=== PATIENT | male | born 1975 | race Caucasian/White ===

== ENCOUNTER 2025-03-03 13:38 | Outpatient (CLI) | payer OTHER, SELFPAY ==
--- OUTSIDE RECORDS SUMMARY | 2025-02-25 12:00 | XMS_ITS | Encounter Summary ---
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 to Physical Therapy for Evaluation & Treatment New Medications Ordered This Visit Medications celecoxib (CeleBREX) 200 MG capsule Sig: Take 1 capsule by mouth 2 (Two) Times a Day As Needed for Mild Pain. Dispense: 60 capsule Refill: 5 TIME SPENT: I spent 50 minutes caring for the patient on this date of service. This time includes time spent by me in the following activities: Preparing for the visit, obtaining records, reviewing/ordering tests and independently reviewing results, performing a medically appropriate history/exam, counseling and educating the patient/family/caregiver, ordering medications, tests, or procedures, and documenting information in the medical record. Follow Up: Return in about 6 months (around 08/26/2025). Patient or patient abrasives sales representative verbalized consent for the use of Ambient Listening during the visit with Carmine Ng MD for chart documentation. 02/25/2025 13:35 EDT Carmine Ng MD [facility] [place] documented in this encounter Plan of Treatment Upcoming Encounters Date Type Department Care Team (Late st Contact Info) Description 09/07/2025 2:15 PM EDT Office Visit [facility] RHEUMATOLOGY [address] [place] [phone] Carmine Ng MD [address] [address] Scheduled Orders Name Type Priority Associated Diagnoses Orde r Schedule Comprehensive Metabolic Panel Lab Routine Other fatigue Arthralgia of multiple sites ESR raised Ordered: 02/25/2025 CBC Auto Differential Lab Routine Other fatigue Arthralgia of multiple sites ESR raised Ordered: 02/25/2025 C-reactive Protein Lab Routine Other fatigue Arthralgia of multiple sites ESR raised Ordered: 02/25/2025 Sedimentation Rate Lab Routine Other fatigue Arthralgia of multiple sites ESR raised Ordered: 02/25/2025 UA / M With / Rflx Culture([facility] ONLY) - Urine, Clean Catch Lab Routine Other fatigue Arthralgia of multiple sites ESR raised Ordered: 02/25/2025 MINISTERIO by IFA, Reflex 9-biomarkers profile Lab Routine Other fatigue Arthralgia of multiple sites ESR raised Ordered: 02/25/2025 Cyclic Citrul Peptide Antibody, IgG / IgA Lab Routine Other fatigue Arthralgia of multiple sites ESR raised Ordered: 02/25/2025 Rheumatoid Factor Lab Routine Other fatigue Arthralgia of multiple sites ESR raised Ordered: 02/25/2025 CK Lab Routine Other fatigue Arthralgia of multiple sites ESR raised Ordered: 02/25/2025 ANCA Panel Lab Routine Other fatigue Arthralgia of multiple sites ESR raised Ordered: 02/25/2025 Hepatitis Panel, Acute Lab Routine Other fatigue Arthralgia of multiple sites ESR raised Ordered: 02/25/2025 TSH Lab Routine Other fatigue Arthralgia of multiple sites ESR raised Ordered: 02/25/2025 Vitamin B12 Lab Routine Other fatigue Arthralgia of multiple sites ESR raised Ordered: 02/25/2025 Vitamin D,25-Hydroxy Lab Routine Other fatigue Vitamin D deficiency Arthralgia of multiple sites ESR raised Ordered: 02/25/2025 RPR, Rfx Qn RPR / Confirm TP Lab Routine Other fatigue Arthralgia of multiple sites ESR raised Ordered: 02/25/2025 Hemoglobin A1c Lab Routine Neuropathy Ordered: 02/25/2025 Lyme Disease Total Antibody With Reflex to Immunoassay Lab Routine Neuropathy Ordered: 02/25/2025 Vitamin B1, Whole Blood Lab Routine Neuropathy Ordered: 02/25/2025 Heavy Metals Profile I, Urine Random - Lab Routine Neuropathy Ordered: 02/25/2025 Protein Elec + Interp, Serum Lab Routine Neuropathy Ordered: 02/25/2025 Cryoglobulin Lab Routine Neuropathy Ordered: 02/25/2025 Celiac Disease Panel Lab Routine Neuropathy Expected: 03/02/2025 (Approximate), Expires: 05/28/2026 documented as of this encounter Procedures Procedure Name Priority Date/Time Associated Diagnosis Comments XR SHOULDER 2+ VW RIGHT Routine 02/25/2025 2:02 PM EDT Arthralgia of multiple sites XR SACROILIAC JOINTS 3+ VW Routine 02/25/2025 2:02 PM EDT Other fatigue Arthralgia of multiple sites ESR raised documented in this encounter Results * XR Shoulder 2+ View Right (02/25/2025 2:02 PM EDT) Anatomical Region Laterality Modality Upper Extremities, Shoulder Right Radi ographic Imaging 02/25/2025 6:09 PM EDT Impressions 02/25/2025 6:10 PM EDT Impression: 1.No evidence of acute fracture or malalignment. 2.Mild degenerative changes of the acromioclavicular joint. 3.No evidence of sacroiliitis. Electronically Signed: Perfecto Thibodeaux MD 02/25/2025 6:10 PM EDT Workstation ID: [id number] Narrative 02/25/2025 6:10 PM EDT XR SACROILIAC JOINTS 3+ VW, XR SHOULDER 2+ VW RIGHT Date of Exam: 02/25/2025 1:52 PM EDT Indication: pain. Comparison: None available. Findings: Right shoulder: Normal alignment. Mild degenerative changes acromioclavicular joint. No evidence of fracture. Visualized lung is grossly clear. Sacroiliac joints: No evidence of subchondral sclerosis or erosive changes. No displaced fracture or traumatic malalignment. Procedure Note Perfecto Thibodeaux MD - 02/25/2025 XR SACROILIAC JOINTS 3+ VW, XR SHOULDER 2+ VW RIGHT Date of Exam: 02/25/2025 1:52 PM EDT Indication: pain. Comparison: None available. Findings: Right shoulder: Normal alignment. Mild degenerative changesacromioclavicular joint. No evidence of fracture. Visualized lung isgrossly clear. Sacroiliac joints: No evidence of subchondral sclerosis or erosivechanges. No displaced fracture or traumatic malalignment. IMPRESSION: Impression: 1.No evidence of acute fracture or malalignment. 2.Mild degenerative changes of the acromioclavicular joint. 3.No evidence of sacroiliitis. Electronically Signed: Perfecto Thibodeaux MD 02/25/2025 6:10 PM EDT Workstation ID: [id number] us Carmine Ng MD IM DIAGNOSTIC IMAGING RODRIGO LLANES Final Result * XR Sacroiliac Joints 3+ View (02/25/2025 2:02 PM EDT) Anatomical Region Laterality Modality Body, Spine, Pelvis N/A Radiographic Imaging 02/25/2025 6:09 PM EDT Impressions 02/25/2025 6:10 PM EDT Impression: 1.No evidence of acute fracture or malalignment. 2.Mild degenerative changes of the acromioclavicular joint. 3.No evidence of sacroiliitis. Electronically Signed: Perfecto Thibodeaux MD 02/25/2025 6:10 PM EDT Workstation ID: [id number] Narrative 02/25/2025 6:10 PM EDT XR SACROILIAC JOINTS 3+ VW, XR SHOULDER 2+ VW RIGHT Date of Exam: 02/25/2025 1:52 PM EDT Indication: pain. Comparison: None available. Findings: Right shoulder: Normal alignment. Mild degenerative changes acromioclavicular joint. No evidence of fracture. Visualized lung is grossly clear. Sacroiliac joints: No evidence of subchondral sclerosis or erosive changes. No displaced fracture or traumatic malalignment. Procedure Note Perfecto Thibodeaux MD - 02/25/2025 XR SACROILIAC JOINTS 3+ VW, XR SHOULDER 2+ VW RIGHT Date of Exam: 02/25/2025 1:52 PM EDT Indication: pain. Comparison: None available. Findings: Right shoulder: Normal alignment. Mild degenerative changesacromioclavicular joint. No evidence of fracture. Visualized lung isgrossly clear. Sacroiliac joints: No evidence of subchondral sclerosis or erosivechanges. No displaced fracture or traumatic malalignment. IMPRESSION: Impression: 1.No evidence of acute fracture or malalignment. 2.Mild degenerative changes of the acromioclavicular joint. 3.No evidence of sacroiliitis. Electronically Signed: Perfecto Thibodeaux MD 02/25/2025 6:10 PM EDT Workstation ID: [id number] us Carmine Ng MD IMG DIAGNOSTIC IMAGING ORDSilver LLANES Final Result documented in this encounter Visit Diagnoses Diagnosis Arthralgia of multiple sites- Primary Right shoulder pain, unspecified chronicity Chronic back pain, unspecified back location, unspecified back pain laterality ESR raised Elevated sedimentation rate Other fatigue Vitamin D deficiency Neuropathy Mononeuritis of unspecified site documented in this encounter Care Teams [employer] Flatbed Driver Relationship Specialty Start Date End Date Elissa Abad DO [address] [place] [address] PCP - General Family Medicine 02/25/25 documented as of this encounter
--- OUTSIDE RECORDS SUMMARY | 2025-02-25 13:00 | XMS_ITS | Encounter Summary ---
[facility] Address [address] [place] [address] Care Team Providers Care Irrigation Teacher Name Role Phone Elissa Abad Primary Care Provider [phone] Encounter Details Date Type Department Care Team (Late Contact Info) Description 02/25/2025 2:00 PM EDT Ancillary Procedure [facility] RHEUMATOLOGY [address] [place] [phone] Social History Tobacco Use Types Packs/Day Years [...] PM EDT documented as of this encounter Plan of Treatment Upcoming Encounters Date Type Department Care Team (Late st Contact Info) Description 09/07/2025 2:15 PM EDT Office Visit [facility] RHEUMATOLOGY [address] [phone] Carmine Ng MD [address] [place] [address] documented as of this encounter Procedures Procedure [...] MD 02/25/2025 6:10 PM EDT Workstation ID: [id number] Narrative 02/25/2025 6:10 PM EDT XR SACROILIAC [...] MD 02/25/2025 6:10 PM EDT Workstation ID: [id number] us Carmine Ng MD IM DIAGNOSTIC IMAGING [...] MD 02/25/2025 6:10 PM EDT Workstation ID: [id number] Narrative 02/25/2025 6:10 PM EDT XR SACROILIAC [...] MD 02/25/2025 6:10 PM EDT Workstation ID: [id number] us Carmine Ng MD IMG DIAGNOSTIC IMAGING ORDE MARIO ALBERTO Final Result documented in this encounter Visit Diagnoses Not on filedocumented in this encounter Care Teams Irrigation Teacher Relationship Specialty Start Date End Date Elissa Abad DO [address] [place], [place] [phone] PCP - General Family Medicine 02/25/25 documented as of this encounter
--- OUTSIDE RECORDS SUMMARY | 2025-03-03 13:42 | XMS_ITS | Encounter Summary ---
[facility] Address [address] [place] [address] Care Team Providers Care Irrigation Manager Name Role Phone NenoElissa redding Yoselin Primary Care Provider [phone] Encounter Details Date Type Department Care Team (Late Contact Info) Description 02/26/2025 Results Follow-Up [facility] RHEUMATOLOGY [address] [place] [phone] Carmine Ng MD [address] [place] [id number] Social History Tobacco Use Types Packs/Day Years [...] Description 09/07/2025 2:15 PM EDT Office Visit [facility] RHEUMATOLOGY [address] [place] [phone] Carmine Ng MD [address] [place] [phone] documented as of this encounter Visit Diagnoses Not on filedocumented in this encounter Care Teams Irrigation Manager Relationship Specialty Start Date End Date Elissa Abad DO [address] [place] [address] PCP - General Family Medicine 02/25/25 documented as of this encounter
--- OUTSIDE RECORDS SUMMARY | 2025-03-03 13:42 | XMS_ITS | Encounter Summary ---
[facility] Address [address] [place] [address] Care Team Providers Care Warp Hanger Name Role Phone Elissa Abad DO Primary Care Provider [phone] Encounter Details Date Type Department Care Team (Latest Contact Info) Description 02/25/2025 Travel Social History Tobacco Use Types Packs/Day Years [...] Description 09/07/2025 2:15 PM EDT Office Visit [facility] RHEUMATOLOGY [address] [phone] [address] MD [address] [facility] [place] [address] [place] [address] documented as of this encounter Visit Diagnoses Not on filedocumented in this encounter Care Teams Warp Hanger Relationship Specialty Start Date End Date Elissa Abad DO [facility] [place] [address] PCP - General Family Medicine 02/25/25 documented as of this encounter
--- OUTSIDE RECORDS SUMMARY | 2025-03-03 13:42 | XMS_ITS | Clinical Summary ---
[facility] Address [address] [place] [address] Care Team Providers Care Calker Name Role Phone NenoElissa redding Yoselin Primary Care Provider [phone] Allergies Active Allergy Reactions Criticality Noted Date Comments Oxycodone-Acetaminophen Itching Low 02/25/2025 Medications Ventolin HFA 108 (90 Base) MCG/ACT inhaler INHALE 2 PUFFS BY MOUTH EVERY 6 HOURS NEEDED FOR SHORTNESS OF BREATH OR WHEEZING Active fluticasone-sa lmeterol (ADVAIR HFA) 230-21 MCG/ACT inhaler TAKE 1 PUFF BY MOUTH TWICE A DAY (9AM AND 9PM) Active losartan (COZAAR) 50 MG tablet Take 1 tablet by mouth Daily. 09/09/19 25 Active traZODone (DESYREL) 50 MG tablet Take 1 tablet by mouth Daily. Active SUMAtriptan (IMITREX) 100 MG tablet TAKE 1 TABLET BY MOUTH ONCE NEEDED FOR MIGRAINE HEADACHE Active omeprazole (priLOSEC) 40 MG capsule Take 1 capsule by mouth Daily. Active amLODIPine (NORVASC) 2.5 MG tablet Take 1 tablet by mouth Daily. 09/09/19 25 Active busPIRone (BUSPAR) 15 MG tablet Take 1 tablet by mouth 3 times a day. 02/13/20 25 Active venlafaxine XR (EFFEXOR-XR) 150 MG 24 hr capsule Take 1 capsule by mouth Daily. Active methocarbamol (ROBAXIN) 750 MG tablet Take 1 tablet by mouth Every 6 (Six) Hours. 12/26/19 25 Active Lysine HCl (l-lysine) 500 MG tablet tablet Take by mouth Daily. Active Multiple Vitamins-Piscataquis als (Centrum Minis Women 50+) tablet Take 1 tablet by mouth Daily. Active fluticasone (VERAMYST) 27.5 MCG/SPRAY nasal spray Administer 2 sprays into the nostril(s) as directed by provider Daily. Active celecoxib (CeleBREX) 200 MG capsule Take 1 capsule by mouth 2 (Two) Times a Day As Needed for Mild Pain. 60 capsule 5 02/26/20 Active meloxicam (MOBIC) 15 MG tablet Take 1 tablet by mouth Daily. 02/03/20 25 025 Discontinued Active Problems Problem Noted Date Diagnosed Date Arthralgia of multiple sites 02/25/2025 Right shoulder pain 02/25/2025 Chronic back pain 02/25/2025 ESR raised 02/25/2025 Other fatigue 02/25/2025 Encounters Date Type Department Care Team Description 02/26/2025 Results Follow-Up [facility] RHEUMATOLOGY [address] [place] [phone] Carmine Ng MD 02/25/2025 2:00 PM EDT Ancillary Procedure [facility] RHEUMATOLOGY [address] [place] [phone] 02/25/2025 1:00 PM EDT Office Visit [facility] RHEUMATOLOGY [address] [place] [phone] Carmine Ng MD Arthralgia of multiple sites (Primary Dx); Right shoulder pain, unspecified chronicity; Chronic back pain, unspecified back location, unspecified back pain laterality; ESR raised; Other fatigue; Vitamin D deficiency; Neuropathy 02/25/2025 Telephone [facility] RHEUMATOLOGY [address] [place] [phone] Carmine Ng MD 02/25/2025 Travel from Last 3 Months Family History Medical History Relation Name Comments Diabetes Father Hyperlipidemia Father Hypertension Father Myelofibrosis Father Pancreatic cancer Father Brain cancer Mother Heart disease Mother Relation Name Status Comments Father Mother Social History Tobacco Use Types Packs/Day Years [...] Orientation Straight 02/25/2025 10 :30 PM EDT Last Filed Vital Signs Vital Sign Reading [...] Mass Index 42.65 02/25/2025 1:07 PM EDT Plan of Treatment Upcoming Encounters Date Type Department Care Team (Late st Contact Info) Description 09/07/2025 2:15 PM EDT Office Visit [facility] RHEUMATOLOGY [address] [phone] Carmine Ng MD [address] [phone] Health Maintenance Due Date Last Done Comments Annual Gynecologic Pelvic an d Breast Exam 1975 MAMMOGRAM 2015 COLOGUARD 2020 COLON CANCER SCREENING 5 YEA R SIGMOIDOSCOPY 2020 COLONOSCOPY [address] CANCER SCREENING 2020 CT COLONOGRAPHY 2020 FECAL OCCULT BLOOD TEST 2020 FIT Testing (1 year) 2020 INFLUENZA VACCINE 11/27/2024 01/01/2023, 02/01/2022 ANNUAL PHYSICAL 02/23/2025 HEPATITIS C SCREENING 02/23/2025 TDAP/TD VACCINES (2 - Td or Tdap) 08/26/2031 08/25/2021 Pneumococcal Vaccine 0-49 Aged Out 04/11/2023 No longer eligible based on patient's age to complete this topic Procedures Procedure Name Priority Date/Time Associated Diagnosis Comments XR SHOULDER 2+ VW RIGHT Routine 02/25/2025 2:02 PM EDT Arthralgia of multiple sites XR SACROILIAC JOINTS 3+ VW Routine 02/25/2025 2:02 PM EDT Other fatigue Arthralgia of multiple sites ESR raised from Last 3 Months Results * XR Shoulder 2+ View Right (02/25/2025 2:02 PM EDT) Anatomical Region Laterality Modality Upper Extremities, Shoulder Right Radi ographic Imaging 02/25/2025 6:09 PM EDT Impressions 02/25/2025 6:10 PM EDT Impression: 1.No evidence of acute fracture or malalignment. 2.Mild degenerative changes of the acromioclavicular joint. 3.No evidence of sacroiliitis. Electronically Signed: Perfecto Thibodeaux MD 02/25/2025 6:10 PM EDT Workstation ID: [id number] Narrative 02/25/2025 6:10 PM EDT XR SACROILIAC [...] MD 02/25/2025 6:10 PM EDT Workstation ID: [id number] us Carmine Ng MD IM DIAGNOSTIC IMAGING ORDSilver LLANES Final Result * XR Sacroiliac Joints 3+ View (02/25/2025 2:02 PM EDT) Anatomical Region Laterality Modality Body, Spine, Pelvis N/A Radiographic Imaging 02/25/2025 6:09 PM EDT Impressions 02/25/2025 6:10 PM EDT Impression: 1.No evidence of acute fracture or malalignment. 2.Mild degenerative changes of the acromioclavicular joint. 3.No evidence of sacroiliitis. Electronically Signed: Perfecto Thibodeaux MD 02/25/2025 6:10 PM EDT Workstation ID: [id number] Narrative 02/25/2025 6:10 PM EDT XR SACROILIAC [...] MD 02/25/2025 6:10 PM EDT Workstation ID: [id number] Carmine Ng MD IMG DIAGNOSTIC IMAGING RODRIGO LLANES Final Result from Last 3 Months Insurance Care Teams Calker Relationship Specialty Start Date End Date Elissa Abad DO [address] [place] [address] PCP - General Family Medicine 02/25/25
--- OUTSIDE RECORDS SUMMARY | 2025-03-03 13:42 | XMS_ITS | Encounter Summary ---
[facility] Address [address] [place] [address] Care Team Providers Care Windows Migration Technician Name Role Phone Elissa Abad DO Primary Care Provider [phone] [phone] Encounter Details Date Type Department Care Team (Late st Contact Info) Description 02/25/2025 Telephone [facility] RHEUMATOLOGY [address] [place] [phone] Carmine Ng MD [address] [place] [phone] Social History Tobacco Use Types Packs/Day Years [...] PM EDT documented as of this encounter Miscellaneous Notes * Telephone Encounter - Carmine Ng MD - 02/25/2025 1:23 PM EDT Request notes, imaging xray/mri results from neurology dr addie miller([facility]), cardiology in [place], pulmonary dr kendall, and [facility] documented in this encounter Plan of Treatment Upcoming Encounters Date Type Department Care Team (Late st Contact Info) Description 09/07/2025 2:15 PM EDT Office Visit [facility] [address] [phone] Carmine Ng MD [address] [address] documented as of this encounter Visit Diagnoses Not on filedocumented in this encounter Care Teams Windows Migration Technician Relationship Specialty Start Date End Date Elissa Abad DO [facility] [place] [address] PCP - General Family Medicine 02/25/25 documented as of this encounter
--- NOTE | 2025-03-03 14:00 | MR_ITS ---
FINAL REPORT TECHNIQUE: Multiplanar and multisequence imaging of the brain was obtained without contrast. CLINICAL HISTORY: Facial weakness FINDINGS: There is no mass effect or midline shift. Foci of periventricular and subcortical white matter are nonspecific. No hydrocephalus. The cerebellum and brainstem have an unremarkable appearance. There are no areas of restricted diffusion on diffusion weighted images to suggest acute infarct. Soft tissues are without acute abnormality. IMPRESSION: No acute intracranial abnormality. Nonspecific T2 abnormality within the periventricular and subcortical white matter. Differential considerations include sequela of migraine headaches, small vessel ischemia, or demyelinating disease. Reviewed, Interpreted and Dictated by Mariana Merino MD Transcribed by Zenaida Castelan Authenticated and [facility]
== END 2025-03-03 23:59 | disposition home or self-care (01) ==
LOC: RAD 13:39
PROVIDERS: PCP Family Medicine; Visit Provider Specialist
DX: R29.810 Facial weakness (principal); R29.2 Abnormal reflex; R93.0 Abnormal findings on diagnostic imaging of skull and head, not elsewhere classified
CPT/HCPCS: 70551